=== PATIENT | female | born 1945 | race Asian ===

== ENCOUNTER 2018-01-08 09:52 | Observation (INO) | payer OTHER ==
[~2018-01-08] VITALS: Ht 157.5 cm; Wt 95.9 kg
[2018-01-08 10:24] LABS: HEMATOCRIT 38.4 % (36.0-46.0); HEMOGLOBIN 13.9 G/DL (11.9-15.5); MCH 32.2 PG (29.0-34.0); MCHC 36.2 G/DL (30.0-36.0); MCV 88.9 FL (83-99); PLATELET COUNT 256 K/uL (156-360); RBC DIS.WIDTH-CV 11.2 % (11.8-14.6); RBC DIS.WIDTH-SD 36.2 % (39-53); RED BLOOD COUNT 4.32 M/uL (3.80-5.20)
[2018-01-08 10:37] LABS: ALBUMIN 4.3 g/dL (3.2-4.8)
[2018-01-08 10:38] LABS: CHLORIDE 96 mEq/L (99-109); POTASSIUM 4.6 mEq/L (3.7-5.4); SODIUM 128 mEq/L (136-147)
[2018-01-08 10:40] LABS: GLUCOSE 128 mg/dL (70-99); TOTAL PROTEIN 7.4 g/dL (6.4-8.3)
[2018-01-08 10:42] LABS: TOTAL BILIRUBIN 0.5 mg/dL (0.0-1.0)
[2018-01-08 10:43] LABS: ALKALINE PHOSPHATASE 117 IU/L (3-129)
[2018-01-08 10:44] LABS: CREATININE 0.7 mg/dL (0.6-1.3); GFR ESTIMATE (CALCULATED) > 59 mL/min/
[2018-01-08 10:45] LABS: AST (GOT) 24 IU/L (2-34); UREA NITROGEN (BUN) 9 mg/dL (9-23)
[2018-01-08 10:46] LABS: ALT (GPT) 32 IU/L (3-49)
[2018-01-08 11:30] LABS: TROP-I INTERPRETATION NEGATIVE; TROPONIN-I < 0.01 ng/mL (0.0-0.30)
[2018-01-08 11:47] LABS: APPEARANCE CLEAR ((CLEAR)); BILIRUBIN NEGATIVE; BLOOD NEGATIVE; COLOR YELLOW ((YELLOW)); GLUCOSE (STRIP) 50; KETONES NEGATIVE; LEUKOCYTES SMALL; NITRITE NEGATIVE; PROTEIN (STRIP) NEGATIVE; SPECIFIC GRAVITY 1.014 (1.000-1.030)
[2018-01-08 11:53] LABS: BACTERIA NONE SEEN /HPF; EPITHELIAL CELLS RARE /HPF; MUCUS NONE SEEN /LPF; RED BLOOD CELLS 0-5 /HPF (0-5); UCUL ADDED? NO; WHITE BLOOD CELLS 0-5 /HPF (0-5)
[2018-01-08 11:59] LABS: CARBAMAZEPINE (TEGRETOL) 9.1 MCG/ML (4.0-12.0)
[2018-01-08] MEDS ORDERED: CARBAMAZEPINE200 MG PO (12:54)
[2018-01-08] MEDS ORDERED: VENTOLIN HFA18 GM IH (12:55)
[2018-01-08] MEDS ORDERED: FLONASE16 G1 BOTH NARES (12:55)
[2018-01-08] MEDS ORDERED: LISINOPRIL10 MG PO (12:55)
[2018-01-08] MEDS ORDERED: IBUPROFEN600 MG PO (12:56)
[2018-01-08 14:25] VITALS: BP 166/77
[2018-01-08 19:46] VITALS: BP 154/79
[2018-01-08 23:46] VITALS: BP 154/78
[2018-01-09 03:44] VITALS: BP 137/77
[2018-01-09 05:41] LABS: HEMATOCRIT 36.9 % (36.0-46.0); HEMOGLOBIN 13.4 G/DL (11.9-15.5); MCH 32.4 PG (29.0-34.0); MCHC 36.3 G/DL (30.0-36.0); MCV 89.1 FL (83-99); PLATELET COUNT 235 K/uL (156-360); RBC DIS.WIDTH-CV 11.5 % (11.8-14.6); RBC DIS.WIDTH-SD 37.4 % (39-53); RED BLOOD COUNT 4.14 M/uL (3.80-5.20); WHITE BLOOD COUNT 7.9 K/uL (4.1-10.2)
[2018-01-09 06:54] LABS: CHLORIDE 96 MEQ/L (99-109); CREATININE 0.6 MG/DL (0.6-1.3); GFR ESTIMATE (CALCULATED) > 59 mL/min/; GLUCOSE 143 mg/dL (70-99); POTASSIUM 4.6 MEQ/L (3.7-5.4); SODIUM 129 MEQ/L (136-147); UREA NITROGEN (BUN) 14 mg/dL (9-23)
[2018-01-09 08:12] VITALS: BP 130/78
[2018-01-09 11:26] VITALS: BP 126/74
[2018-01-09] MEDS ORDERED: SODIUM CHLORIDE1 G1 PO (14:30)
[2018-01-09] MEDS ORDERED: ZOFRAN ODT4 MG PO (14:36)
== END 2018-01-09 15:07 | disposition home or self-care (01) ==
LOC: EME 09:52 → EDOF 12:30 → ENRESERV 12:48 → 4SOUTH 14:21
PROVIDERS: Hospitalist
DX: E87.1 Hypo-osmolality and hyponatremia (principal); G50.0 Trigeminal neuralgia; I10 Essential (primary) hypertension; E78.1 Pure hyperglyceridemia; M26.609 Unspecified temporomandibular joint disorder, unspecified side; Z90.49 Acquired absence of other specified parts of digestive tract; E66.01 Morbid (severe) obesity due to excess calories; Z68.38 Body mass index [BMI] 38.0-38.9, adult; R73.03 Prediabetes; J45.909 Unspecified asthma, uncomplicated; E78.5 Hyperlipidemia, unspecified; K21.9 Gastro-esophageal reflux disease without esophagitis
CPT/HCPCS: 70450; 71046; 80048; 80053; 80156; 81003; 83935; 84300; 84443; 84484; 85027; 93005; 99281; 99285; G0378; J1644; J2405